=== PATIENT | male | born 1990 ===

== ENCOUNTER 2017-05-10 08:35 | Emergency (ER) | payer OTHER ==
[~2017-05-10] VITALS: Ht 177.8 cm; Wt 84.8 kg
[2017-05-10] MEDS ORDERED: Pepcid20 MG PO (09:08)
== END 2017-05-10 09:40 | disposition home or self-care (01) ==
LOC: ER 08:35
DX: L50.0 Allergic urticaria (principal)
CPT/HCPCS: 99282